=== PATIENT | female | born 1975 ===

== ENCOUNTER 2016-10-24 18:10 | Emergency (ER) | payer OTHER ==
[~2016-10-24] VITALS: Ht 157.5 cm; Wt 66.0 kg
[2016-10-24 18:14] VITALS: Ht 157.5 cm; Wt 66.0 kg
[2016-10-24] MEDS ORDERED: ASPIRIN 325 MG TAB PO STA (20:32)
[2016-10-24] MEDS ORDERED: KETOROLAC 30 MG INJ IV STA (20:41)
[2016-10-24] MEDS ORDERED: IBUP-1542 PO (20:42)
--- NOTE | 2016-10-24 20:51 | ERD ---
ER Documentation Chief Complaint Date/Time DATE: 10/24/16 TIME: 20:44 Chief Complaint Complains of having chest pain that radietes to left arm HPI Patient is a 41-year-old female who presents to the emergency department with chest pain 2 days. Patient states that the pain is primarily in her left chest and radiates down her left arm. She reports left arm tingling. Patient states that the pain is episodic in nature and last approximately 1-2 hours each time. She describes the pain to be "heavy feeling." Patient states that her current pain level is a 4 out of 10. Patient denies any shortness of breath, jaw pain, neck pain, palpitations, dizziness, loss of consciousness. Patient denies any leg swelling, recent surgeries, recent, travel, or estrogen use. Patient denies any fever, chills, nausea, vomiting. ROS All systems reviewed and are negative except as per history of present illness. Medications Home Meds Active Scripts Ferrous Sulfate* (Ferrous Sulfate*) 325 Mg Tabec, 325 MG PO DAILY, #30 TAB Prov:KANA BECKFORD PA-C 10/24/16 Ibuprofen* (Motrin*) 600 Mg Tab, 600 MG PO Q6, #30 TAB Prov:KANA BECKFORD PA-C 10/24/16 Allergies Allergies: Coded Allergies: No Known Allergy (Unverified , 10/24/16) PMhx/Soc Medical and Surgical Hx: pt denies Medical Hx, pt denies Surgical Hx Hx Alcohol Use: No Hx Substance Use: No Hx Tobacco Use: No FmHx Family History: diabetes Physical Exam Vitals Vital Signs Date Time Temp Pulse Resp B/P Pulse Ox O2 Delivery O2 Flow Rate FiO2 10/24/16 22:03 62 17 108/56 97 Room Air 10/24/16 18:14 98.1 72 20 120/77 100 Physical Exam GENERAL: Well-developed, well-nourished female. Appears in no acute distress. HEAD: Normocephalic, atraumatic. EYES: Pupils are equally reactive bilaterally. EOMs grossly intact. No conjunctival erythema. ENT: Moist mucous membranes. No uvula deviation. No kissing tonsils. NECK: Supple. No lymphadenopathy or thyromegaly. No meningismus. Normal range of motion of neck. LUNG: Clear to auscultation bilaterally. No rhonchi, wheezing, rales or coarse breath sounds. HEART: Regular rate and rhythm. No murmurs, rubs or gallops. Slight left chest tenderness to palpation. ABDOMEN: Surgical scars noted on abdomen. Soft, nontender, and nondistended. Positive bowel sounds in all four quadrants. No rebound tenderness, no guarding. (-) McBurneys point tenderness. No CVA tenderness. BACK: No midline tenderness. Tender to palpation of bilateral lumbar paraspinal muscles. EXTREMITIES: Equal pulses bilaterally. No peripheral clubbing, cyanosis or edema. No unilateral leg swelling. NEUROLOGIC: Alert and oriented. Moving all four extremities without any difficulty. Normal speech. Speaking in full sentences. Steady gait. SKIN: Normal color. Warm and dry. No rashes or lesions. Non-diaphoretic. Result Diagram: 10/24/16204810/24/162048 Results 24 hrs Laboratory Tests Test 10/24/16 20:49 Activated Partial Thromboplast Time 27.9Sec Alanine Aminotransferase (ALT/SGPT) 19IU/L Albumin 4.4g/dl Albumin/Globulin Ratio 1.29 Alkaline Phosphatase 79IU/L Anion Gap 13 Aspartate Amino Transf (AST/SGOT) 27IU/L Basophils # 0.010^3/ul Basophils % 0.5% Blood Urea Nitrogen 15mg/dl Calcium Level 9.1mg/dl Carbon Dioxide Level 29mmol/L Chloride Level 102mmol/L Creatinine 0.66mg/dl Direct Bilirubin 0.00mg/dl Eosinophils # 0.110^3/ul Eosinophils % 0.6% Globulin 3.40g/dl Glucose Level 78mg/dl Hematocrit 33.3% Hemoglobin 11.4g/dl INR International Normalized Ratio 0.97 Indirect Bilirubin 0.1mg/dl Lymphocytes # 3.510^3/ul Lymphocytes % 40.6% Mean Corpuscular Hemoglobin 27.5pg Mean Corpuscular Hemoglobin Concent 34.2g/dl Mean Corpuscular Volume 80.2fl Mean Platelet Volume 10.5fl Monocytes # 0.710^3/ul Monocytes % 8.4% Neutrophils # 4.310^3/ul Neutrophils % 49.6% Nucleated Red Blood Cells # 0.010^3/ul Nucleated Red Blood Cells % 0.0/100WBC Platelet Count 10473^3/UL Potassium Level 3.4mmol/L Prothrombin Time 12.9Sec Prothrombin Time Ratio 1.0 Red Blood Count 4.1510^6/ul Red Cell Distribution Width 13.4% Sodium Level 141mmol/L Total Bilirubin 0.1mg/dl Total Protein 7.8g/dl Troponin I < 0.012ng/ml White Blood Count 8.610^3/ul Current Medications Medications (Trade) Dose Ordered Sig/Jean Route PRN Reason Start Time Stop Time Status Last Admin Dose Admin Aspirin (Aspirin) 325 mg ONCE STAT PO 10/24/16 20:32 10/24/16 20:42 DC Ketorolac Tromethamine (Toradol) 30 mg ONCE STAT IV 10/24/16 20:41 10/24/16 20:42 DC 10/24/16 20:53 Procedures/MDM ED COURSE: The patient was stable throughout ED course. I kept the patient and/or family informed of laboratory and diagnostic imaging results throughout the ED course. EKG: Read by Dr. Iverson, attending physician. EKG shows normal sinus rhythm at a rate of 69 bpm. No arrhythmias, acute ST elevations or T wave changes were noted. DIAGNOSTIC IMAGING: Read by radiologist. DIAGNOSTIC IMAGING REPORT Patient: ALEXANDRO STRONG : 1975 Age: 41 Sex: F MR #: [id number] DOS: 10/24/162031 Ordering MD: KANA BECKFORD PA-C Location: [facility] Room/Bed: PROCEDURE: XR Chest. CLINICAL INDICATION: Chest pain TECHNIQUE: AP Portable chest. COMPARISON: No pertinent prior examinations were submitted for comparison. FINDINGS: The cardiomediastinal silhouette is normal. The lungs are clear. The osseous structures are unremarkable. IMPRESSION: No acute findings. RPTAT: HIKT .Rodriguez Najera MD, Date Time Electronically viewed and signed by .Rodriguez Najera MD, on 10/24/2016 21:32 .T/ CC: KANA BECKFORD PA-C MEDICATIONS GIVEN: Toradol IM Patient tolerated medication well with no adverse reactions. Patient reported improvement in pain. MEDICAL DECISION MAKING: This is a 41-year-old female who presents with chest pain 2 days. Patient denied any leg swelling, recent surgeries, travel, exogenous estrogen use. Vital signs were reviewed. Patient was afebrile. Patient was not hypoxic. Cardiac exam was normal. Lung exam was normal. Some pain was reproduced with palpation of the left chest. EKG was within normal limits. Troponin was negative. Low suspicion for acute coronary syndrome, arrhythmia or pericarditis. CXR was within normal limits. Low suspicion for pneumothorax, pneumonia or pleural effusion. PERC score was 0. Low suspicion for DVT or PE. Given these findings, the patients presentation is most consistent with chest pain of unknown etiology. Patient will need to see a auto body shop manager for further workup of her symptoms including stress test. I will also treat the patient was anemia given Hgb of 11.4 and HCT of 33.3. PRESCRIPTIONS: Ibuprofen Ferrous sulfate for anemia DISCHARGE: At this time, patient is stable for discharge and outpatient management. I have instructed the patient to follow-up with his/her primary care physician in 1-2 days. If symptoms persist, patient may need to see a specialist for further examinations and testing. I have instructed the patient to promptly return to the ER at any time for any new or worsening symptoms including increased increased pain, fever, nausea, vomiting, numbness, weakness, diaphoresis or LOC. The patient and/or family expressed understanding of and agreement with this plan. All questions were answered. Home care instructions were provided. Departure Diagnosis: Primary Impression: Chest pain Chest pain type: unspecified Qualified Code: R07.9 - Chest pain, unspecified type Condition: Stable Patient Instructions: Chest Pain, Uncertain Cause Referrals: GRACIELA POLANCO,NAPOLEON AGOSTO MD,MARVA ARIAS MD, JANE H MD GUROVICH,NAA SUAREZ MD [facility] YOU HAVE RECEIVED A MEDICAL SCREENING EXAM AND THE RESULTS INDICATE THAT YOU DO NOT HAVE A CONDITION THAT REQUIRES URGENT TREATMENT IN THE EMERGENCY DEPARTMENT. FURTHER EVALUATION AND TREATMENT OF YOUR CONDITION CAN WAIT UNTIL YOU ARE SEEN IN YOUR DOCTORS OFFICE WITHIN THE NEXT 1-2 DAYS. IT IS YOUR RESPONSIBILITY TO MAKE AN APPOINTMENT FOR FOLOW-UP CARE. IF YOU HAVE A PRIMARY DOCTOR --you should call your primary doctor and schedule an appointment IF YOU DO NOT HAVE A PRIMARY DOCTOR YOU CAN CALL OUR PHYSICIAN REFERRAL HOTLINE AT IF YOU CAN NOT AFFORD TO SEE A PHYSICIAN YOU CAN CHOSE FROM THE FOLLOWING [facility] [address] [facility] [address] [facility] [address] [facility] [address] [facility] [address] [facility]. [facility] [address] [facility] [facility] YOU HAVE RECEIVED A MEDICAL SCREENING EXAM AND THE RESULTS INDICATE THAT YOU DO NOT HAVE A CONDITION THAT REQUIRES URGENT TREATMENT IN THE EMERGENCY DEPARTMENT. FURTHER EVALUATION AND TREATMENT OF YOUR CONDITION CAN WAIT UNTIL YOU ARE SEEN IN YOUR DOCTORS OFFICE WITHIN THE NEXT 1-2 DAYS. IT IS YOUR RESPONSIBILITY TO MAKE AN APPOINTMENT FOR [facility]. IF YOU HAVE A PRIMARY DOCTOR --you should call your primary doctor and schedule and appointment IF YOU DO NOT HAVE A PRIMARY DOCTOR YOU CAN CALL OUR PHYSICIAN REFERRAL HOTLINE AT . IF YOU CAN NOT AFFORD TO SEE A PHYSICIAN YOU CAN CHOSE FROM THE FOLLOWING [facility]: [facility] [address] [place] [address] [facility] [address] [place] [address] [facility] [address] [place] [address] Additional Instructions: Call your primary care doctor TOMORROW for an appointment during the next 1-2 days.See the doctor sooner or return here if your condition worsens before your appointment time. At this time unable to rule out etiology of chest pain. Patient will need to follow-up with a auto body shop manager for further workup of her symptoms including a stress test. Patient was advised to return to emergency department immediately for any new or worsening symptoms including worsening of chest pain, shortness of breath, diaphoresis, loss of consciousness. KANA BECKFORD PA-C Oct 24, 2016 20:51
[2016-10-24 20:57] LABS: ADD SCAN DIFF NO
[2016-10-24 21:06] LABS: BASOPHILS % 0.5 % (0.0-2.0); EOSINOPHILS # 0.1 10^3/ul (0.0-0.5); EOSINOPHILS % 0.6 % (0.0-7.0); HEMATOCRIT 33.3 % (37.0-47.0); HEMOGLOBIN 11.4 g/dl (12.0-16.0); LYMPHOCYTES # 3.5 10^3/ul (0.8-2.9); LYMPHOCYTES % 40.6 % (15.0-51.0); MEAN CORPUSCULAR HEMOGLOBIN 27.5 pg (29.0-33.0); MEAN CORPUSCULAR HGB CONC 34.2 g/dl (32.0-37.0); MEAN CORPUSCULAR VOLUME 80.2 fl (82.0-101.0); MEAN PLATELET VOLUME 10.5 fl (7.4-10.4); MONOCYTE # 0.7 10^3/ul (0.3-0.9); MONOCYTES % 8.4 % (0.0-11.0); NEUTROPHIL # 4.3 10^3/ul (1.6-7.5); NEUTROPHILS % 49.6 % (39.0-77.0); PLATELET COUNT 191 10^3/UL (140-415); RED BLOOD COUNT 4.15 10^6/ul (4.20-5.40); RED CELL DISTRIBUTION WIDTH 13.4 % (11.5-14.5); WHITE BLOOD COUNT 8.6 10^3/ul (4.8-10.8)
[2016-10-24 21:09] LABS: INR 0.97; PROTIME 12.9 Sec (12.2-14.2)
[2016-10-24 21:10] LABS: PARTIAL THROMBOPLASTIN TIME 27.9 Sec (25.0-35.0)
[2016-10-24 21:14] LABS: ALBUMIN 4.4 g/dl (3.3-4.9)
[2016-10-24 21:15] LABS: CHLORIDE 102 mmol/L (97-110); POTASSIUM 3.4 mmol/L (3.5-5.1); SODIUM 141 mmol/L (135-144)
[2016-10-24 21:17] LABS: ANION GAP 13 (8-16); ASPARTATE AMINO TRANSFERASE 27 IU/L (15-46); BILIRUBIN,INDIRECT 0.1 mg/dl (0-1.1); BILIRUBIN,TOTAL 0.1 mg/dl (0.2-1.3); CARBON DIOXIDE 29 mmol/L (21-31); CREATININE 0.66 mg/dl (0.44-1.00)
[2016-10-24 21:18] LABS: ALANINE AMINOTRANSFERASE 19 IU/L (13-69); ALBUMIN/GLOBULIN RATIO 1.29; ALKALINE PHOSPHATASE 79 IU/L (42-121); BLOOD UREA NITROGEN 15 mg/dl (7-20); CALCIUM 9.1 mg/dl (8.4-10.2); GLUCOSE 78 mg/dl (70-220); TOTAL PROTEIN 7.8 g/dl (6.1-8.1)
[2016-10-24 21:30] LABS: TROPONIN-I < 0.012 ng/ml (0.00-0.12)
--- NOTE | 2016-10-24 21:33 | RADRPT ---
PROCEDURE: XR Chest. CLINICAL INDICATION: Chest pain TECHNIQUE: AP Portable chest. COMPARISON: No pertinent prior examinations were submitted for comparison. FINDINGS: The cardiomediastinal silhouette is normal. The lungs are clear. The osseous structures are unrema rkable. IMPRESSION: No acute findings. RPTAT: HIKT .Rodriguez Najera MD, MD Date Time Electronically viewed and signed by .Rodriguez Najera MD, MD on 10/24/2016 21:32 .T/
[2016-10-24] MEDS ORDERED: FER325 PO (21:49)
[2016-10-24 22:03] VITALS: BP 108/56; PULSE 62; RESP 17
== END 2016-10-24 22:05 | disposition home or self-care (01) ==
LOC: FTE 18:10
DX: R07.9 Chest pain, unspecified (principal)
CPT/HCPCS: 36415; 71010; 80053; 84484; 85025; 85610; 85730; 93005; 96374; J1885; Z7502